=== PATIENT | female | born 1960 | race Caucasian/White ===

== ENCOUNTER 2022-11-30 16:01 | Outpatient (REF) | payer BC, SELFPAY ==
[2022-11-30 17:40] LABS: Vitamin B12 571 pg/mL (200-900)
== END 2022-11-30 16:02 | disposition home or self-care (01) ==
LOC: HO.LAB 16:01
PROVIDERS: Visit Provider Psychiatry & Neurology Neurology
DX: G20 Parkinson's disease (principal)
CPT/HCPCS: 36415; 82607

== ENCOUNTER 2025-06-30 15:27 | Outpatient (AMB) | payer BC, MEDICARE, SELFPAY ==
--- NOTE | 2025-06-30 15:48 | A.OFFVIS_ITS ---
Intake Visit Reasons: 6m F/u Allergies No Known Allergies Allergy (Verified 06/26/25 14:03) HPI Comments Details: 65 yo woman with Parkinson disease started with right hand tremor in 2022 followed by right leg tremor. She has responded to Levodopa. She is presenting with Parkinson's Disease. She is currently taking Carbidopa/Levodopa 25/100 mg three times daily. A mild right hand tremor was noted when her arm was held outstretched, and her facial expression was mildly decreased. She experiences increased tremors when nervous but has not fallen and feels her overall functioning is satisfactory, including adequate sleep, food intake, and walking. Memory is reportedly intact, and she recently refilled her medication, indicating no immediate need for adjustment. Continued monitoring and a follow-up appointment have been planned. [facility] Medical History (Updated 06/30/25 @ 16:13 by Jolly Melendez MD) Parkinson disease HTN (hypertension) Review of Systems Narrative Constitutional:?No fever, chills, fatigue, weight loss, or night sweats. HEENT:?No headache, vision changes, hearing loss, nasal congestion, sore throat. Neurological:?No dizziness, syncope, seizures, numbness, tingling, weakness, tremors, memory loss. Psychiatric:?No anxiety, depression, mood swings, sleep disturbance, or hallucinations. Endocrine:?No heat/cold intolerance, polydipsia, polyuria, or hair/skin changes. Hematologic/Lymphatic:?No easy bruising, bleeding, or lymphadenopathy. Integumentary (Skin):?No rash, lesions, itching, or color changes. ? Physical Exam Neuro Other: Mental Status: Alert and oriented to person, place, and time. Normal attention. Normal spontaneous speech, fluency, and comprehension. No obvious issues with mood and memory. Affect is appropriate. Cranial Nerves: CN II: Visual james full to confrontation, visual acuity intact. CN III, IV, : Pupils equal, round, reactive to light and accommodation. Extraocular movements are normal. CN V: Facial sensation is normal. CN VII: Facial movements symmetrical. CN VIII: Hearing intact to bedside conversation is normal. CN IX, X: Palate elevates symmetrically. CN XI: Shoulder shrug and head turn symmetrical. CN XII: Tongue midline without atrophy or fasciculations. Motor: Bulk and tone normal in all extremities. No significant muscle weakness in arms and legs. No drift. Reflexes: Deep tendon reflexes 2+ and symmetric. Plantar response down-going bilaterally. Coordination: Juvpxy-ob-lgcz and dmep-ha-admo testing normal. No dysmetria. Gait and Station: No obvious gait abnormality. No ataxia or instability. Extrapyramidal: Mildly decreased facial expression blinking. Mild right hand tremor in outstretched position. Speech: Normal; no dysarthria or tremor. Assessment & Plan Assessment & Plan (1) Parkinson disease: Code(s): G20 - Parkinson's disease Category: Medical Plan Impression: 65 years old woman with mild Parkinson's disease Recommendations: Carbidopa/levodopa 25/100, 1 tablets, 3 times a day. She was reassured and educated and was advised to walk every day. Coding Level of Care Code Est Pt Level 4 (26858) Diagnoses Parkinson disease G20
--- OUTSIDE RECORDS SUMMARY | 2025-06-30 19:51 | XMS_ITS ---
Author Name [facility] Organization Unknown Care Team Organization Name Specialty Phone Email Start Date End Da te [facility] Mary Beth Villeda MD Primary Care 07/11/2022 04/21/2024
--- OUTSIDE RECORDS SUMMARY | 2025-06-30 19:52 | XMS_ITS | Clinical Summary ---
Author Organization [facility] Address [address] [place] [address] Phone Care Team Providers Care Mobile Therapist Name Role Phone Mary Beth Villeda MD Primary Care Provider Allergies No known active allergies Medications carbidopa-levo dopa (SINEMET) 25-100 mg per tablet TAKE 1 TABLET EVERY MORNING AND AT NOONTIME 3 Active fluticasone propionate (FLONASE) 50 mcg/actuation nasal spray 2 Sprays by Each Nare route daily. 3 Active triamcinolone (KENALOG) 0.1 % ointment Apply a small amount to affected area MWF 30 g 5 Active losartan (COZAAR) 25 mg tablet TAKE 1 TABLET BY MOUTH EVERY DAY 90 tablet 1 5 Active losartan (COZAAR) 25 mg tablet TAKE 1 TABLET BY MOUTH EVERY DAY 90 tablet 5 025 Discontinued Active Problems Problem Noted Date Diagnosed Date Primary hypertension 05/16/2024 Lichen sclerosus 10/10/2016 Overview (09/26/2024): Confirmed on 2016 Assessment & Plan (01/13/2025 11:40 AM EDT): Reviewed findings with patient. Well controlled. I reviewed the importance of regular maintenance topical steroid use to prevent symptoms, further scarring, and squamous cell cancer of the vulva. I also explained the importance of regular follow up to ensure she has no evidence of precancerous or cancerous changes and that she is not having side effects from her medication. I reviewed areas of application and amount of medication to use. Continue MWF triamcinolone. Assessment & Plan (10/08/2024 4:14 PM EST): Reviewed findings with patient. I counseled her that findings are consistent with lichen sclerosus. I explained this is likely an autoimmune inflammatory condition and that the mainstay of therapy is use of maintenance topical steroid. I explained that women with lichen sclerosus are at about a 5 fold increased risk of SCC over the general population. Explained that the purpose of the steroid is to prevent symptoms, further scarring, and squamous cell cancer of the vulva. I also explained the importance of regular follow up to ensure she has no evidence of precancerous or cancerous changes and that she is not having side effects from her medication. I reviewed areas of application and amount of medication to use. She voiced understanding. She was given [facility] information re: LS today and will call with any questions. She will start triamcinolone and use it MWF. 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 Encounters Date Type Department Care Team Description 06/18/2025 Telephone Adult Medicine [address] [phone] Mary Beth Villeda MD 04/13/2025 11:00 AM EDT Office Visit Adult Medicine [address] [phone] Carlita Sharma NP Parkinson's disease, unspecified whether dyskinesia present, unspecified whether manifestations fluctuate (CMS/HCC V24, CMS/HCC V28) (Primary Dx); Primary hypertension from Last 3 Months Immunizations Immunization Administration Dates Next Due Influenza trivalent, 0.5mL, preservative free (Fluarix; FluLaval; Fluzone) ages 6mo and older (Afluria) 3 years and older 05/16/2024,06/17/2023,06/16/2020,2018,06/12/2018,06/13/2017,06/14/2016,1 ,06/12/2014,06/03/2013, 012,07/18/2007 Influenza trivalent, with preservative (Fluzone; Afluria) 6mo and older 06/18/2013 Pfizer SARS-CoV-2 COVID-19, mRNA, LNP-S, preservative free 12/20/2020,11/27/2020 Td Tetanus diptheria (Tdvax) 7yo and older 03/25/2021 Tdap Tetanus diptheria acell ular pertussis (Boostrix; Adacel) 7yo and older 07/22/2007 Surgical History Surgery Date Site/Laterality Comments CERVICAL BIOPSY W/ LOOP ELECTRODE EXCISION 1999 PROCEDURE: IN CONIZATION CERVIX W/WO D&C RPR ELTRD EXC ANKLE FRACTURE SURGERY 2013 Right PROCEDURE: IN OPEN TREATMENT MEDIAL MALLEOLUS FRACTURE; COMMENT: cast only Medical History Medical History Date Comments Benign neoplasm of cervix uteri 1999 DX:Benign neoplasm of cervix uteri; COMMENT: LEEP Primary hypertension 05/16/2024 Family History Medical History Relation Name Comments Lung cancer Maternal Grandfather Alzheimer's disease Mother Celiac disease Mother Hypertension Mother Thyroid disease Sister 1 peggy Hypertension Sister 2 peggy Blindness Neg Hx Breast cancer Neg Hx Cataracts Neg Hx Colon cancer Neg Hx Glaucoma Neg Hx Kidney cancer Neg Hx Macular degeneration Neg Hx Ovarian cancer Neg Hx Pancreatic cancer Neg Hx Prostate cancer Neg Hx Strabismus Neg Hx Uterine cancer Neg Hx Relation Name Status Comments Brother Alive healthy, back i ssues Father Alive chol Maternal Grandfather Maternal Grandmother Mother Alive celiac, thyroid , HTN Paternal Grandfather Paternal Grandmother Sister 1 Sister 2 Sister 3 Alive thyroid Sister 4 Alive thyroid Social History Tobacco Use Types Packs/Day Years Used Date Smoking Tobacco: Never Smokeless Tobacco: Never Tobacco Cessation:Counseling Given: Not Answered Alcohol Use Standard Drinks/Week Comments Not Currently 0 (1 standard drink = 0.6 oz pur e alcohol) occ Comments No Sex and Gender Information Value Date Recorded Sex Assigned at Not on file Legal Sex Female 4:44 AM EST Gender Identity Not on file Sexual Orientation Not on file Obstetrics History Para Term AB IAB SAB Ectopic Multiple Livin g Live Births 0 0 0 0 0 0 0 0 Last Filed Vital Signs Vital Sign Reading Time Taken Comments Blood Pressure 117/69 04/13/2025 10:58 AM EDT Pulse 87 04/13/2025 10:58 AM EDT Temperature - - Respiratory Rate 18 04/13/2025 10:58 AM EDT Oxygen Saturation - - Inhaled Oxygen Concentration - - Weight 52.2 kg (115 lb) 04/13/2025 10:58 AM EDT Height 152.4 cm (5') 04/13/2025 10:58 AM EDT Body Mass Index 22.46 04/13/2025 10:58 AM EDT Plan of Treatment Upcoming Encounters Date Type Department Care Team (Late st Contact Info) Description 10/15/2025 1:00 PM EST Office Visit Adult Medicine - [address] [phone] Mary Beth Villeda MD [address] [place] [address] Health Maintenance Due Date Last Done Comments Pneumococcal Vaccine: 50+ Years (1 of 1 - PCV) 2010 Colorectal Cancer Screening: Stool Based Tests (FOBT/FIT) 08/12/2022 Medicare Annual Wellness Visit 08/12/2022 Osteoporosis Screening (Bone Density Screening) 08/12/2022 Social Influencers of Health Screening 08/12/2022 Depression Screening 09/03/2024 Hypertension/CHF/CAD Annual BMP Blood Test 09/28/2024 09/28/2023 Falls Risk Assessment 2025 COVID-19 Vaccine ( season) 2025 07/11/2022, 08/11/2021, 12/20/2020, Additional history exists Breast Cancer Screening 12/19/2026 12/20/19, 12/07/2023, 11/24/2022, Additional history exists Cholesterol Screening (Lipid Panel) 09/28/2028 09/28/2023 Cervical Cancer Screening: HPV 09/26/2029 09/26/2024, 01/04/2015 DTaP,Tdap,and Td Vaccines (3 - Td or Tdap) 03/25/2031 03/25/2021, 07/22/2007 RSV Immunization Adult Patients (1 - 1-dose 75+ series) 2035 Hepatitis C Screening Completed 02/03/2013 Zoster Vaccines Completed 01/28/2022, 10/23/2021 Influenza Vaccine Completed 06/12/2025, , 06/18/2023, Additional history exists HIB Vaccines Aged Out No longer eligi ble based on patient's age to complete this topic HPV Vaccines Aged Out No longer eligi ble based on patient's age to complete this topic Hepatitis A Vaccines Aged Out No long er eligible based on patient's age to complete this topic Hepatitis B Vaccines Aged Out No long er eligible based on patient's age to complete this topic IPV Vaccines Aged Out No longer eligi ble based on patient's age to complete this topic MMR Vaccines Aged Out No longer eligi ble based on patient's age to complete this topic Meningococcal ACWY Vaccine Aged Out N o longer eligible based on patient's age to complete this topic Meningococcal B Vaccine Aged Out No l onger eligible based on patient's age to complete this topic RSV Immunization Patients Under 20 months Aged Out No longer eligible based on patient's age to complete this topic Varicella Vaccines Aged Out No longer eligible based on patient's age to complete this topic Procedures Procedure Name Priority Date/Time Associated Diagnosis Comments MG MAMMO DIGITAL SCREENING W ELIAS BILAT Routine 12/19/2024 9:07 AM EDT Encounter for screening mammogram for breast cancer HPV WITH REFLEX GENOTYPE Routine 09/26/2024 10:47 AM EST Encounter for gynecological examination with abnormal finding ANNUAL BMP BLOOD TEST Routine 09/28/2023 LIPID PANEL Routine 09/28/2023 HEPATITIS C SCREENING Routine 02/03/2013 from Last 3 Months or Most Recently Relevant to Health Maintenance Results * MG Mammo Digital Screening w Elias bilat (12/19/2024 9:07 AM EDT) Anatomical Region Laterality Modality Breast Bilateral Mammography 12/19/2024 5:51 PM EDT Impressions 12/19/2024 5:53 PM EDT No mammographic evidence for malignancy. BI-RADS CATEGORY: 1 - NEGATIVE RECOMMENDATION: Screening bilateral mammogram is recommended in 1 year. Mammo Location: [facility], [address] [place] [address], [phone], . -------- FINAL REPORT -------- Dictated By: Belkis Chaves Dictated Date: 12/19/2024 17:51 ET Assigned Physician: Belkis Chaves Reviewed and Electronically Signed By: Belksi Chaves Signed Date: 12/19/2024 17:53 ET Workstation ID: [id number] Transcribed By: Self Edit Transcribed Date: 12/19/2024 17:51 ET Narrative 12/19/2024 5:53 PM EDT Bilateral screening mammogram. CLINICAL: 64 years old, Female, routine annual exam. COMPARISON: Prior mammograms, latest from 12/07/2023. TECHNIQUE: Bilateral MLO and CC views were obtained digitally with 2D C views and 3-D mammogram (digital breast tomosynthesis). Computer-aided detection was utilized in evaluation of this exam (CAD). FINDINGS: There is no evidence of suspicious mass or architectural distortion. No worrisome calcifications are evident. There has been no significant change from prior exam(s). BREAST DENSITY: D - The breasts are extremely dense which lowers the sensitivity of mammography. Procedure Note Belkis Chaves MD - 12/19/2024 Bilateral screening mammogram. CLINICAL: 64 years old, Female, routine annual exam. COMPARISON: Prior mammograms, latest from 12/07/2023. TECHNIQUE: Bilateral MLO and CC views were obtained digitally with 2D Cviews and 3-D mammogram (digital breast tomosynthesis). Computer-aideddetection was utilized in evaluation of this exam (CAD). FINDINGS: There is no evidence of suspicious mass or architectural distortion. Noworrisome calcifications are evident. There has been no significantchange from prior exam(s). BREAST DENSITY: D - The breasts are extremely dense which lowers thesensitivity of mammography. IMPRESSION: No mammographic evidence for malignancy. BI-RADS CATEGORY: 1 - NEGATIVE RECOMMENDATION: Screening bilateral mammogram is recommended in 1 year. Mammo Location: [facility], [address] [place] [address], [id number], . -------- FINAL REPORT -------- Dictated By: Belkis Chaves Dictated Date: 12/19/2024 17:51 ET Assigned Physician: Belkis Chaves Reviewed and Electronically Signed By: Belkis Chaves Signed Date: 12/19/2024 17:53 ET Workstation ID: [id number] Transcribed By: Self Edit Transcribed Date: 12/19/2024 17:51 ET Mary Beth Villeda MD IMG BI PROCEDURES Gloria l Result * HPV with reflex genotype (09/26/2024 10:47 AM EST) [facility] HPV Negative Negative LAB MICROBIOLOGY METHOD 09/29/2024 1:49 PM EST [facility] Broom Cervix uteri structure / Unknown 09/26/2024 10:47 AM EST 09/29/2024 6:02 AM EST [facility] MOLECULAR DIAGNOSTICS O RDERABLES Final Result [facility] [address] [place] [address], [place] [phone] * Annual BMP Blood Test (09/28/2023) Pathologist [facility] Annual BMP Blood Test abstracted Historical Provider HEALTH MAINTENANCE Final Result * (ABNORMAL) Lipid panel (09/28/2023) [facility] LDL/HDL Ratio 2 <=4 Triglycerides 83 <=150 mg/dL Cholesterol 205(A) <=200 mg/dL HDL 91 >=40 mg/dL LDL Cholesterol 98 <=100 mg/dL Blood Venous blood specimen / Unknown Historical Provider LAB BLOOD ORDERABLES Gloria l Result * Hepatitis C Screening (02/03/2013) Hepatitis C Screening abstracted Historical Provider HEALTH MAINTENANCE Final Result from Last 3 Months or Most Recently Relevant to Health Maintenance Insurance MEDICARE [facility] Care Teams Mobile Therapist Relationship Specialty Start Date End Date Mary Beth Villeda MD [address] [place] [id number] PCP - General Internal Medicine 01/27/22
== END 2025-06-30 15:54 | disposition home or self-care (01) ==
LOC: HO.HSM 15:29
PROVIDERS: PCP Family Medicine; Visit Provider Psychiatry & Neurology Neurology
DX: G20.A1 Parkinson's disease without dyskinesia, without mention of fluctuations (principal)
CPT/HCPCS: 99214